=== PATIENT | female | born 1995 | race Caucasian/White ===

== ENCOUNTER 2017-04-04 21:48 | Inpatient (IN) | payer OTHER ==
[~2017-04-04] VITALS: Ht 170.2 cm; Wt 100.0 kg
[2017-04-04] MEDS ORDERED: PROTONIX40 MG PO (22:54)
[2017-04-04] MEDS ORDERED: MONO-LINYAH 281 EACH PO (22:55)
[2017-04-04] MEDS ORDERED: ZYRTEC10 M3 PO (22:55)
[2017-04-04] MEDS ORDERED: SPIRONOLACTONE50 MG PO (22:55)
[2017-04-06 06:42] LABS: HEMOGLOBIN 12.3 gm/dl (12.3-15.3); RED BLOOD COUNT 4.35 M/UL (4.00-5.10); WHITE BLOOD COUNT 6.7 K/UL (4.5-11.0)
[2017-04-06 07:04] LABS: BUN/CREATININE RATIO 10 (0-10)
[2017-04-07 05:19] LABS: BUN/CREATININE RATIO 12 (0-10)
[2017-04-07] MEDS ORDERED: NORCO 7.5-3251 EACH PO (15:39)
== END 2017-04-07 17:55 | disposition home or self-care (01) | DRG 419 ==
LOC: M/S 21:48
PROVIDERS: Surgery; ADMIT Internal Medicine
PROC: BF101ZZ Fluoroscopy of Bile Ducts using Low Osmolar Contrast (ICD-10-PCS; 2017-04-06)
PROC: 0FT44ZZ Resection of Gallbladder, Percutaneous Endoscopic Approach (ICD-10-PCS; principal; 2017-04-06 10:00)
DX: K80.20 Calculus of gallbladder without cholecystitis without obstruction (principal); E28.2 Polycystic ovarian syndrome; K91.0 Vomiting following gastrointestinal surgery; Y83.8 Other surgical procedures as the cause of abnormal reaction of the patient, or of later complication, without mention of misadventure at the time of the procedure; Y73.3 Surgical instruments, materials and gastroenterology and urology devices (including sutures) associated with adverse incidents; Y92.239 Unspecified place in hospital as the place of occurrence of the external cause; E66.9 Obesity, unspecified; Z68.34 Body mass index [BMI] 34.0-34.9, adult; R74.0 Nonspecific elevation of levels of transaminase and lactic acid dehydrogenase [LDH]; Z79.899 Other long term (current) drug therapy
CPT/HCPCS: 36415; 47531; 74181; 80053; 82150; 83690; 84703; 85027; 85610; C9113; J0295; J1100; J2250; J2270; J2405; J2710; J2765; J3010; J7050; J7120; Q9962